=== PATIENT | female | born 1985 | race Caucasian/White ===

== ENCOUNTER 2017-10-22 11:12 | Emergency (ER) | payer MEDICAID ==
[~2017-10-22] VITALS: Ht 170.2 cm; Wt 79.0 kg
[2017-10-22 11:23] VITALS: BP 123/61
[2017-10-22] MEDS ORDERED: NAPR-1154 PO (12:02)
[2017-10-22] MEDS ORDERED: PENI250T2 PO (12:02)
== END 2017-10-22 12:10 | disposition home or self-care (01) ==
LOC: ER 11:15
DX: K04.7 Periapical abscess without sinus (principal); Z59.0 Homelessness; Z79.899 Other long term (current) drug therapy; Z60.2 Problems related to living alone
CPT/HCPCS: 99283

== ENCOUNTER 2018-05-03 15:09 | Emergency (ER) | payer MEDICAID ==
[~2018-05-03] VITALS: Ht 172.7 cm; Wt 70.5 kg
[~2018-05-03 15:09] MED LIST: NAPR-1154 PO
[2018-05-03 15:12] VITALS: BP 107/60
[2018-05-03] MEDS ORDERED: PENI250T2 PO (15:26)
[2018-05-03] MEDS ORDERED: IBUP-1984 PO (15:26)
== END 2018-05-03 15:30 | disposition home or self-care (01) ==
LOC: ER 15:09
DX: K08.89 Other specified disorders of teeth and supporting structures (principal); Z60.2 Problems related to living alone; Z59.0 Homelessness; Z79.899 Other long term (current) drug therapy
CPT/HCPCS: 99283

== ENCOUNTER 2023-10-05 18:38 | Emergency (ER) | payer MEDICAID | END 2023-10-05 20:18 | disposition left against medical advice (07) | LOC: ER 18:39 | DX: L08.89 Other specified local infections of the skin and subcutaneous tissue (principal); Z53.21 Procedure and treatment not carried out due to patient leaving prior to being seen by health care provider ==

== ENCOUNTER 2023-11-15 12:23 | Emergency (ER) | payer MEDICAID ==
[~2023-11-15] VITALS: Ht 167.6 cm; Wt 60.4 kg
[2023-11-15 12:37] VITALS: BP 109/49; PULSE 76; RESP 18; TEMP 98; O2SAT 100
== END 2023-11-15 16:18 | disposition left against medical advice (07) ==
LOC: ER 12:24
DX: R11.2 Nausea with vomiting, unspecified (principal); Z53.21 Procedure and treatment not carried out due to patient leaving prior to being seen by health care provider; R50.9 Fever, unspecified
CPT/HCPCS: 99281